=== PATIENT | female | born 2005 | race Caucasian/White ===

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

== ENCOUNTER 2023-01-09 12:51 | Inpatient (IN) | payer OTHER | END 2023-01-10 21:30 | disposition home or self-care (01) | DRG 807 | LOC: OBS 12:51 → BC 12:56 → OBS 13:04 → BC 13:06 | PROVIDERS: ADMIT Obstetrics & Gynecology | PROC: 10E0XZZ Delivery of Products of Conception, External Approach (ICD-10-PCS; principal; 2023-01-09) | PROC: 10907ZC Drainage of Amniotic Fluid, Therapeutic from Products of Conception, Via Natural or Artificial Opening (ICD-10-PCS; 2023-01-09) | PROC: 3E033VJ Introduction of Other Hormone into Peripheral Vein, Percutaneous Approach (ICD-10-PCS; 2023-01-09) | DX: O99.02 Anemia complicating childbirth (principal); Z37.0 Single live birth; D50.9 Iron deficiency anemia, unspecified; O99.344 Other mental disorders complicating childbirth; F31.9 Bipolar disorder, unspecified; O26.03 Excessive weight gain in pregnancy, third trimester; O76 Abnormality in fetal heart rate and rhythm complicating labor and delivery; O71.82 Other specified trauma to perineum and vulva; Z67.30 Type AB blood, Rh positive; Z3A.39 39 weeks gestation of pregnancy; Z91.048 Other nonmedicinal substance allergy status ==

== ENCOUNTER 2025-01-22 06:48 | Emergency (ER) | payer OTHER ==
[~2025-01-22] VITALS: Ht 160 cm; Wt 68.0 kg
[~2025-01-22 06:48] MED LIST changes: +AMOCLA875 PO; +PRENATAL TABLE1 EAC2 PO
[2025-01-22] MEDS ORDERED: HYDHCL25 PO (07:50)
[2025-01-22 08:03] VITALS: BP 126/69
== END 2025-01-22 08:02 | disposition home or self-care (01) ==
LOC: ER 06:48
DX: F41.9 Anxiety disorder, unspecified (principal); Z91.048 Other nonmedicinal substance allergy status
CPT/HCPCS: 99283; A9270